=== PATIENT | male | born 1990 | race Caucasian/White ===

== ENCOUNTER 2023-05-10 08:52 | Day surgery (SDC) | payer OTHER ==
[~2023-05-10] VITALS: Ht 177.8 cm; Wt 90.5 kg
[~2023-05-10 08:52] MED LIST: NS 1,000 ML IV ONE; PANT40TA29 PO
[2023-05-10] MEDS ORDERED: LIDOCAINE 2% 100MG/5ML SDV (FOR ANES.) As Ordered ONE (11:17)
[2023-05-10] MEDS ORDERED: propofoL 200 MG/20 ML VIAL As Ordered ONE ×3 (11:17→11:37)
[2023-05-10 11:51] VITALS: TEMP 97.8
[2023-05-10 12:15] VITALS: BP 114/65; O2SAT 100
== END 2023-05-10 12:15 | disposition home or self-care (01) ==
LOC: M OPP 08:52
PROVIDERS: ATTEND Internal Medicine Gastroenterology
DX: K62.5 Hemorrhage of anus and rectum (principal); K64.0 First degree hemorrhoids; K22.89 Other specified disease of esophagus; K21.00 Gastro-esophageal reflux disease with esophagitis, without bleeding; R13.10 Dysphagia, unspecified; R12 Heartburn; F17.220 Nicotine dependence, chewing tobacco, uncomplicated; Z79.890 Hormone replacement therapy; Z87.891 Personal history of nicotine dependence

== ENCOUNTER → 2023-07-31 | Outpatient (CLI) | payer OTHER ==
[~2023-07-31] MED LIST changes: -NS 1,000 ML IV ONE
== END ==
LOC: M RAD 09:12
PROVIDERS: ATTEND Nurse Practitioner Family
DX: E05.00 Thyrotoxicosis with diffuse goiter without thyrotoxic crisis or storm (principal)
CPT/HCPCS: 78014; A9516